=== PATIENT | female | born 1935 | race Caucasian/White ===

== ENCOUNTER 2021-06-14 09:18 | Day surgery (SDC) | payer OTHER, MEDICARE ==
[2021-06-10 13:19] LABS: Absolute Lymphocytes (CBC) 2.2 K/uL (0.7-4.9); Hematocrit 38.5 % (36.0-45.0); Lymphocytes % 28.3 % (15.3-44.8); MPV 8.3 fL (7.6-11.3); RBC Red Blood Cell Count 4.33 M/uL (3.86-4.86)
--- NOTE | 2021-06-10 13:20 | RAD REPORT ---
EXAM DESCRIPTION: Faheem Olson (2 Views)06/10/2021 12:59 pm CLINICAL HISTORY: Preop for gallbladder surgery COMPARISON: 2011 FINDINGS: Blunting of the left lateral costophrenic sulcus may indicate very small pleural effusion Lungs appear clear of acute infiltration. Heart is normal size
[2021-06-10 13:28] LABS: Albumin 3.2 g/dL (3.4-5.0); Bilirubin Direct 0.1 mg/dL (0-0.2); Bilirubin Total 0.4 mg/dL (0.2-1.0); Potassium 4.4 mmol/L (3.5-5.1); Protein, Total 6.9 g/dL (6.4-8.2)
--- NOTE | 2021-06-11 10:43 | EKG ---
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
[2021-06-14] MEDS ORDERED: Ringers Lactate 1,000 ML IV ONE (10:05)
[2021-06-14] MEDS ORDERED: CEFOXITIN/NS 1gm 0 GM/0 ML BAG ONE (10:05)
[2021-06-14] MEDS ORDERED: propofoL 200 MG/20 ML VIAL IV ONE (10:43)
[2021-06-14] MEDS ORDERED: dexAMETHasone 10 MG/ML VIAL ONE (10:44)
[2021-06-14] MEDS ORDERED: ROCURONIUM 50 MG/5 ML VIAL IV ONE (10:44)
[2021-06-14] MEDS ORDERED: FENTANYL CITR 100 MCG/2 ML ONE (10:44)
[2021-06-14] MEDS ORDERED: CIPROFLOXACIN 400mg IV 400 MG/200 ML BAG IV ONE (11:13)
[2021-06-14] MEDS ORDERED: GLYCOPYRROLATE 0.2 MG/ML SYR ONE ×2 (11:41→11:49)
[2021-06-14] MEDS ORDERED: ONDANSETRON 4 MG/2 ML VIAL ONE (11:47)
--- NOTE | 2021-06-14 12:01 | P.BOP ---
Preoperative diagnosis: symptomatic cholelithiasis, abd pain, hx oc carcinoid tumor, R bowel resect Postoperative diagnosis: same plus extensive intrabdominal adhesions, acute cholecystitis Primary procedure: Laparosocpic cholecystectomy Secondary procedure: Laparoscopic lysis of adhesions Felt Carbonizer: BECKY CRAWFORD (PRODUCTION GENERALIST) Estimated blood loss: <20cc Specimen: gb Findings: see dicta Anesthesia: General Complications: None Drain(s): KAE drain Transferred to: Recovery Room Condition: Good
[2021-06-14] MEDS ORDERED: EPHEDRINE SULF 50 MG/ML VIAL ONE (12:21)
[2021-06-14] MEDS ORDERED: MORPHINE 10 MG/ML VIAL ONE (12:23)
--- NOTE | 2021-06-14 13:02 | OP ---
Date of Procedure: 06/14/2021 Surgeon: Levi Casiano MD Preoperative Diagnoses: Symptomatic cholelithiasis and abdominal pain, history of carcinoid tumor, s tatus post a right bowel resection as per patient. Postoperative Diagnoses: Symptomatic cholelithiasis and abdominal pain, history of carcinoid tumor, status post a right bowel resection as per patient plus extensive intraabdominal adhesions in the rig ht upper quadrant. Procedure: Laparoscopic cholecystectomy, laparoscopic lysis of adhesions. Estimated Blood Loss: Less than 20 mL. Specimens: Gallbladder. Findings: Patient has a history of abdominal surgery, so she has extensive adhesions on the right si de. More than half the case was dedicated just doing lysis of adhesions. Anesthesia: General plus local. Complications: None. Drains: KAE #10. Indication: This is a case of an 86-year-old patient with symptomatic cholelithiasis. The benefits, alternatives, and risks of laparoscopic possible open cholecystectomy fully explained which include, but not limited to infection, bleeding, damage to adjacent structures, anesthesia complication, chol edocholithiasis, bile leak, pancreatitis, DE, and . She also understands this may not relieve t he symptoms. She might need more than one surgical intervention. She understood, signed a consent. Procedure In Detail: The patient was brought to the operating room, placed in supine position. Anes thesia was done without complication. Abdominal area was prepped and draped in usual sterile fashion . Marcaine 0.5% was injected for local anesthetic, followed by sharp incision of the skin in the inf raumbilical region. The incision was carried down to fascia, which was opened under direct vision. Peritoneum was encountered, opened under direct vision. Vicryl #1 placed inside the fascia. [place] trocar was carefully introduced. Pneumoperitoneum was obtained. Immediately, we noticed some adhesi ons in the right upper quadrant, obviously that goes with a history of previous carcinoid bowel resec tion. Looking at the area of the liver, I did not see at least any masses, although there are planta r adhesions in that area too that need to be taken care of. So, I placed a 5 mm trocar in the epigas tric area with the help of Endo Kirsten and connected to Bovie cauterizer. We proceeded to sequential ly just remove the adhesions in that area. That allowed me to put 2 more trocars in the right upper quadrant under the same technique, making sure the adhesions were removed as we went through. We spe nt a significant amount of time doing lysis of adhesions and making sure there were no enterotomies o r a bleeding. Once we took care of that then we were able to proceed with the gallbladder surgery. We put a grasper in the fundus of the gallbladder, another grasper in the infundibulum. Retracted th e gallbladder in the inferolateral fashion exposing the triangle of Calot obtaining critical view. T here were more adhesions of omentum to the gallbladder, so carefully we have to remove those too once again to significant amount of time, but we were able to visualize the area of the infundibulum. Pu t a grasper in the fundus of the gallbladder, another grasper in the infundibulum and retracted the g allbladder in the inferolateral fashion exposing the triangle of Calot obtaining critical view. Cyst ic duct and cystic artery were clearly isolated, free circumferentially and a connection between thos e and the gallbladder were clearly identified. I proceeded to ligate those by using at least 3 clips proximal, 1 clip distal, ligation in middle. Same was done with the cystic artery. No bile leak. No bleeding. The gallbladder was removed from liver using Bovie cauterizer and removed from abdomina l cavity using EndoCatch through the umbilical incision. The area was inspected once again. No bile leak, no bleeding with all these adhesions removed in that area and all that inflammation that canno t rule out cholecystitis. I preferred to leave a KAE drain in that region and I left 1 there exiting through 1 of the trocar site and securing that in place with 3-0 nylon. I fully inspected once again . No bleeding. No bile leak. So at that moment, I proceeded to remove the trocars under direct vis ion. Deflated the pneumoperitoneum. Closed the fascia with #1 Vicryl, irrigated with subcutaneous t issue, closed with 3-0 chromic and skin in a subcuticular fashion with 3-0 chromic and Steri-Strips o n top. Sponge count and instrument counts correct. Patient tolerated the procedure well. Patient w as sent to recovery in stable condition. DONA/TAYLOR Voice ID: [id number] Report ID: [id number]
--- NOTE | 2021-06-14 13:05 | DS ---
Diagnoses: Symptomatic cholelithiasis, abdominal pain, history of carcinoid tumor, history of bowel resection, extensive intraabdominal adhesions. Procedure: Laparoscopic cholecystectomy, laparoscopic lysis of adhesions. Disposition: The patient will be discharged home. Depends on how she wake up and she does clinicall y. If she wants to go home, we will see if she does well clinically. If not, then we will keep her overnight for observation. We will see how she goes in the next hour. She was instructed on how to take care of KAE drain and follow up in my office in 1 week. Medications: Will include Tylenol No. 3 q.4 hours p.r.n. pain and Cipro 500 p.o. q.12. DONA/TAYLOR Voice ID: [id number] Report ID: [id number]
[2021-06-14] MEDS ORDERED: MEPERIDINE HCL 25 MG/ML SYR ONE (13:21)
[2021-06-14] MEDS ORDERED: HYDROCODONE/APAP 10/325 TAB ONE (14:08)
[2021-06-14 17:26] VITALS: BP 117/60; TEMP 97.7; O2SAT 97
== END 2021-06-14 15:33 | disposition home or self-care (01) ==
LOC: OR 09:18
PROVIDERS: ATTEND Surgery
PROC: 0DNU4ZZ Release Omentum, Percutaneous Endoscopic Approach (ICD-10-PCS; 2021-06-14)
PROC: 0FT44ZZ Resection of Gallbladder, Percutaneous Endoscopic Approach (ICD-10-PCS; principal; 2021-06-14 11:00)
DX: K80.10 Calculus of gallbladder with chronic cholecystitis without obstruction (principal); I10 Essential (primary) hypertension; E78.00 Pure hypercholesterolemia, unspecified; I50.9 Heart failure, unspecified; Z85.030 Personal history of malignant carcinoid tumor of large intestine; Z20.822 Contact with and (suspected) exposure to COVID-19
CPT/HCPCS: 47562; 49329; 93005; 85025; 80048; 36415; 82150; 80076; 88304; 83690; 71046; U0003; J2704; J3010; J1100; J2175; J7120; J2405; J0744; J0694